=== PATIENT | female | born 1960 | race African-American/Black ===

== ENCOUNTER 2022-09-15 08:33 | Day surgery (SDC) | payer MEDICARE, MEDICAID, SELFPAY ==
[2022-09-15] MEDS: Sodium Phosphate,Mono-Dibasic 133 ML ENEMA PR (08:56)
[2022-09-15] MEDS: Lactated Ringers 1,000 ML 50 ML IVCONT (08:56)
[2022-09-15 09:01] VITALS: BP 147/90; PULSE 68; RESP 18; TEMP 36.6; O2SAT 98; BMI 41.5
--- NOTE | 2022-09-15 09:22 | P.CONAN_ITS ---
REPLACED BY [facility] Past Medical History Medical History Arthritis CVA (cerebral vascular accident) Diabetes mellitus, type 2 Elevated cholesterol Hypertension Insomnia Neuropathic pain Patient : No Surgical History Surgical History No pertinent past surgical history History of Problems with Anesthesia: No Social History Social History Patient Tobacco Use Status: Never used Tobacco Substance Use Frequency: Daily Are you DNR?: No Advance Directives: No Advance Directives Information Provided: Yes Nutrition Risks: No Nutritional Risk Patient : No Meds Allergies Allergy/AdvReac Type Severity Reaction Status Date / Time No Known Allergies Allergy Verified 09/14/22 09:14 Active Medications: Current Medications Lactated Ringer's (Lr) 1,000 mls @ 50 mls/hr IVCONT .Q20H ALEXANDRE Last Admin: 09/15/22 08:56 Dose: 50 mls/hr Sodium Biphosphate/Sodium Phosphate (Sodium Phosphate,[place]-Dibasic 133 Ml Enema) 133 ml NM DAILY MRX1 ALEXANDRE Last Admin: 09/15/22 08:56 Dose: 133 ml Home Medications Medication Instructions Recorded Confirmed Last Taken Type Vitamin D3 1 tab DAILY 09/14/22 09/14/22 Unknown History acetaminophen 650 mg 1 tab PO Q8H PRN pain 09/14/22 09/14/22 Unknown History tablet,extended release (Mapap Arthritis Pain) aspirin 81 mg tablet,delayed 1 tab PO DAILY 09/14/22 09/14/22 Unknown History release atorvastatin 40 mg tablet 1 tab PO QPM cholesterol 09/14/22 09/14/22 Unknown History gabapentin 100 mg capsule mg 09/14/22 Unknown History glipizide 5 mg tablet, extended 1 tab PO DAILY 09/14/22 09/14/22 Unknown History release 24 hr losartan 50 mg-hydrochlorothiazide 1 tab PO QAM blood pressure 09/14/22 09/14/22 Unknown History 12.5 mg tablet zolpidem 5 mg tablet 1 tab PO BEDTIME PRN insomnia 09/14/22 09/14/22 Unknown History Exam Exam Date and Time: September 15, 2022921 Height,Weight and Vital Signs: Height 5 ft 5 in Weight 113.398 kg Last Vital Signs Temp 97.9 F 09/15/22 09:01 Pulse 68 09/15/22 09:01 Resp 18 09/15/22 09:01 BP 147/90 H 09/15/22 09:01 Pulse Ox 98 09/15/22 09:01 O2 Del Method 09/15/22 09:01 Airway Mallampati Class: III TM Dist: >3cm Neck ROM: Full Heart: RRR Lungs: CTA Assessment and Plan Final Anesthetic Review History of Problems with Anesthesia: No ASA Class: III Final Preanesthetic Review: Meds/Allgs Chart Reviewed, Consent Obtained/Reviewed and Anes Risks/Benef Reviewed Patient Risk: Intermediate Procedure Risk: Low Anesthetic Plan Anesthetic Plan: MAC: Disposition: Standard PACU
--- NOTE | 2022-09-15 09:24 | MHC.SHP ---
Pre-Procedural Eval Section A Date of Service: 09/15/22 The patient is an INPATIENT: No Changes since office visit: No Cold of Flu in the past 2 weeks, No New Medical Problems, No Changes in Medication and No Patient answered all questions The History & Physical has been completed within 30 days and I have reviewed it.: Yes Section B Chief Complaint: screening Allergies: Allergies Allergy/AdvReac Type Severity Reaction Status Date / Time No Known Allergies Allergy Verified 09/14/22 09:14 Plan I have reviewed the history and physical and performed a pertinent physical examination on my patient. No changes have occurred unless specified. Time Spent With Patient Time: Total time managing care of this patient today ____ minutes.
--- NOTE | 2022-09-15 09:45 | PC.NURSE ---
dr. el aware that pt smoked 1/2 joint this morning.
[2022-09-15 09:58] LABS: Glucose, Whole Blood 143 mg/dL (60-115)
--- NOTE | 2022-09-15 10:05 | PM.OP ---
Brief Operative Note Date of Service: 09/15/22 Pre-op diagnosis: screening Post-op diagnosis: same Procedure: colonoscopy Surgeon: Viet Glynn Was an [employer] Manager used for this Procedure?: No Estimated blood loss (mL): 2 Pathology: other Condition: stable Disposition: PACU
[2022-09-15 10:10] VITALS: BP 131/72; PULSE 66; RESP 16; TEMP 36.3; O2SAT 96
[2022-09-15 10:25] VITALS: BP 140/82; PULSE 61; RESP 16; TEMP 36.3; O2SAT 96
--- NOTE | 2022-09-15 10:43 | HO.POSTANES ---
Post Anesthesia Evaluation Post Anesthesia Evaluation Vital Signs: Vital Signs Temp Pulse Resp BP Pulse Ox O2 Del Method 09/15/22 10:25 97.3 F 61 16 140/82 H 96 Room Air 09/15/22 10:10 97.4 F 66 16 131/72 96 Room Air 09/15/22 09:01 97.9 F 68 18 147/90 H 98 Room Air Anesthesia: Monitored Mental Status: Awake Pain Control: Satisfactory Nausea/Vomiting: None Hydration: Adequate Anesthesia-Related Issues: No Anes. Related Issues
--- NOTE | 2022-09-15 11:11 | OP_ITS ---
SURGEON: Viet Glynn MD INDICATIONS: Colon cancer screening. PREOPERATIVE DIAGNOSIS: POSTOPERATIVE DIAGNOSIS: PROCEDURE PERFORMED: Colonoscopy to the cecum with snare polypectomy and biopsy. ESTIMATED BLOOD LOSS: COMPLICATIONS: ANESTHESIA: Monitored anesthesia care. ASSISTANTS: SPECIMENS: DESCRIPTION OF PROCEDURE: The procedure was performed on 09/15/2022. A history and physical was performed. The risks and benefits of the procedure were explained to the patient. An informed consent was obtained. The patient was placed in the left lateral decubitus position. A digital rectal exam was performed and it was found to be normal. The Olympus pediatric video colonoscope was introduced into the rectum and advanced to the cecum without difficulty. The cecum was identified by translumination, palpation, identification of the ileocecal valve. Examination was performed. The scope was removed. She tolerated the procedure well and was returned to the recovery area in stable condition. FINDINGS: The terminal ileum was not examined. Abdominal wall pressure was used to assist in advancement of the scope due to looping in the sigmoid. A single polyp in the cecum was removed with snare measuring 8 mm which recovered by suction. The second polyp measuring less than 5 mm was removed at 15 cm with biopsy forceps. No other polyps were identified. There was some liquid stool left, which limited sensitivity examination for detection of small polyps in views in the cecum this was washed and suctioned. Retroflexed examination was normal IMPRESSION: Colon polyps. RECOMMENDATION: Follow up the biopsy results. MD HUYEN Carter/NIKHIL / [id number] MTDD
== END 2022-09-15 10:55 | disposition home or self-care (01) ==
PROVIDERS: PCP Physician Assistant; Visit Provider Internal Medicine Gastroenterology
PROC: 0DJD8ZZ Inspection of Lower Intestinal Tract, Via Natural or Artificial Opening Endoscopic (ICD-10-PCS; CPT 45378; principal; 2022-09-15 09:30)
DX: Z12.11 Encounter for screening for malignant neoplasm of colon (principal); D12.0 Benign neoplasm of cecum; D12.7 Benign neoplasm of rectosigmoid junction; I69.951 Hemiplegia and hemiparesis following unspecified cerebrovascular disease affecting right dominant side; E78.00 Pure hypercholesterolemia, unspecified; I10 Essential (primary) hypertension; E11.8 Type 2 diabetes mellitus with unspecified complications; Z79.84 Long term (current) use of oral hypoglycemic drugs; Z79.82 Long term (current) use of aspirin; Z79.899 Other long term (current) drug therapy; G47.00 Insomnia, unspecified; G62.9 Polyneuropathy, unspecified
CPT/HCPCS: 45385; 45380; 82947; 88305